=== PATIENT | female | born 1955 | race Caucasian/White ===

== ENCOUNTER 2017-12-03 07:04 | Inpatient (IN) | payer OTHER ==
[2017-11-22 10:54] LABS: APTT 34.8 Seconds (25.0-31.3); INR 1.1; PROTIME 10.7 Seconds (9.20-11.50)
[~2017-12-03] VITALS: Ht 160 cm; Wt 98.0 kg
[~2017-12-03 07:04] MED LIST: ASPIRIN325 PO; GABAPENTIN 100100 MG PO; HYZAAR 50-12.51 TAB PO; OXYCODONE HYDROC5 GM PO; PHENERGAN 25 MG25 M1 PO; PROAIR HFA8.5 GM INH; SYMBICORT160 MCG/4. INH; VITAMIN D1000 UNI1 PO
[2017-12-03 10:30] VITALS: BP 136/87
[2017-12-03 16:37] VITALS: BP 130/65
[2017-12-03 20:00] VITALS: BP 120/62
[2017-12-04 00:14] VITALS: BP 118/68
[2017-12-04 04:37] VITALS: BP 126/72
[2017-12-04 05:15] LABS: HEMOGLOBIN 10.8 gm/dL (12.0-15.0)
[2017-12-04 12:00] VITALS: BP 128/63
[2017-12-04 16:00] VITALS: BP 160/82
[2017-12-05] VITALS: BP 130/57
[2017-12-05 04:08] VITALS: BP 137/74
[2017-12-05 05:18] LABS: HEMATOCRIT 33.3 % (37.0-47.0); HEMOGLOBIN 10.7 gm/dL (12.0-15.0)
[2017-12-05 09:20] VITALS: BP 137/74
[2017-12-05] MEDS ORDERED: ELIQUIS2.5 MG PO (10:25)
[2017-12-05] MEDS ORDERED: OXYCODONE HCL 55 MG PO (10:26)
[2017-12-05 10:27] VITALS: BP 137/74
--- NOTE | 2018-01-02 06:50 | OP ---
[address] [address] OPERATIVE REPORT Name: DHARA ESPOSITO Room: [address]#: [id number] Admission: 12/03/17 Attend Phys: Shabnam Gillis Discharge: 12/05/17 Date of : 59 Report #: [id number] THIS REPORT FOR: //name// CC: Eb Lieberman DICTATED BY: Richard Rizzo DO DATE OF SERVICE: 12/03/2017 PREOPERATIVE DIAGNOSIS: Left knee degenerative joint disease. POSTOPERATIVE DIAGNOSES: Left knee degenerative joint disease. PROCEDURE: Left total knee arthroplasty utilizing [employer]omet Vanguard total knee system with the following components: 1. A size 62.5-mm left cruciate retained femur. 2. A 67-mm fixed cruciate tibial plate. 3. A 10-mm E1 infused polyethylene spacer. 4. A 28-mm asymmetric patella. SURGEON: Rinku Birmingham DO. CERTIFIED SUBSTANCE ABUSE COUNSELOR: 1. Richard Rizzo DO. 2. Lv Vizcarra DO. ESTIMATED BLOOD LOSS: 150 mL. ANESTHESIA: General. TOURNIQUET TIME: 42 minutes at 295 mmHg to the left lower extremity. ANTIBIOTICS: 2 grams Ancef IV preoperatively. COMPLICATIONS: None. DRAINS: None. SPECIMENS: None. DISPOSITION: Stable to PACU and will be admitted to the hospital for standard postoperative care. INDICATION FOR PROCEDURE: The patient is a pleasant 62-year-old female who was [facility] [address] [place] [address] OPERATIVE REPORT Name: DHARA ESPOSITO Room: [address] IN [facility].#: [id number] Admission: 12/03/17 Attend Phys: Shabnam Gillis Discharge: 12/05/17 Date of : 59 Report #: [id number] seen in Orthopedic Clinic with complaints of chronic left knee pain. On radiograph, she has evidence of advanced DJD, more so in the medial compartment than the lateral. Her pain has been refractory to conservative measures consisting of oral anti-inflammatories, activity modifications, home physical therapy exercises, attempted weight loss and occasional intra-articular corticosteroid injections for much greater than 6 months' duration. Pain is impacting her quality of life preventing him from performing activities that she wishes to. Therefore, recommend proceeding with a left total knee arthroplasty. Risks, benefits, complications, indications, and alternative treatments were discussed and the patient wished to proceed with surgery today. DESCRIPTION OF PROCEDURE: The patient was seen in preoperative holding area. Correct operative site, left knee was initialed. The patient was taken back to the operating suite, placed in supine position on the operating table, given benefit of general anesthetic. A well-padded tourniquet was placed in left upper thigh. Left lower extremity was then prepped and draped in typical fashion. Surgery began with a timeout, identifying correct patient, correct procedure, correct performing surgeon and preoperative antibiotics. Next, standard anterior midline knee incision was made using a 10 blade scalpel. Skin was incised and subcutaneous tissues were sharply incised until prepatellar fascia was encountered. Next, standard medial parapatellar arthrotomy was performed with a new 10 blade scalpel followed by subperiosteal release of the proximal medial tibia sleeve and to a lesser extent the proximal lateral tibia. Next, patella was everted, knee was flexed and intramedullary femoral drill was inserted into the distal femur, followed by the intramedullary cutting guide placed at 5 degrees left with 11 mm cut. The cutting block was pinned into place. Distal femur cut was performed using oscillating saw. Next, attention was turned to the proximal tibia cut using extramedullary tibial guide aligned along the medial third of the tibial tubercle, the tibial crest and the center of the talus as well as the second metatarsal. A 10-mm resection was taken off the high lateral side. A cutting block was pinned into place. A cutting block was then elected to be shifted up 2 mm taken and 8 mm cut. Again, this was pinned into place. The proximal tibia cut was performed protecting all ligamentous structures throughout the cut. All bony debris were removed. Menisci were then excised at this time using electrocautery. A 10 spacer block was placed in the knee in extension at full extension and it was rather well balanced to varus and valgus stress. Next, attention was turned back to the femur. AP sizer was inserted in place and the 3 degrees rotation measured to be a 62.5-mm femoral component. This was then drilled and a 4-in-1 cutting block was impacted into place in the distal femur. Next, and anterior posterior and anterior posterior chamfer cuts were performed using oscillating saw. All bony debris was removed. Next, attention was turned back to the tibia. The trial tibia was sized and pinned into place appropriately followed by the trial femoral component. A 10-mm polyethylene spacer was [place] [address] OPERATIVE REPORT Name: DHARA ESPOSITO Room: [address]#: [id number] Admission: 12/03/17 Attend Phys: Jc EthanShabanm Luna Discharge: 12/05/17 Date of : 59 Report #: [id number] Knee was taken through range of motion at full flexion and full extension, was stable to varus and valgus stress and was stable at 90 degrees with anterior and posterior drawer testing. Next, attention was turned to the patella, was denervated circumferentially using the electrocautery. Using the Tammy reamer, it was reamed in the normal fashion. It was measured to a size 28, which was drilled appropriately and a trial patellar button was inserted. Knee was again taken through range of motion and felt to be tracking appropriately. Next, a cruciate retained femur drill holes were performed. A trial femoral component was removed. The tibia was drilled and cruciate punched at this time. All trial components were removed and bony surfaces were thoroughly irrigated using pulsatile lavage. Next, cement was applied to the proximal tibia and a final tibial component was impacted into place. All excess cement was removed. In similar fashion, a femoral component was impacted into place. All excess cement was removed. A size 12 trial polyethylene spacer was inserted. A final patella button was then cemented into place and held with patellar clamp. I felt that we had better range of motion, more so terminal extension with our 10-mm polyethylene spacer. Therefore, we pulled our final 10-mm polyethylene spacer, which was inserted with the knee flexed and a locking bar was then positioned in place. At this time, patella was then flipped into its [place] position and the knee was held at 90 degrees of flexion. A standard cocktail was injected and knee was thoroughly irrigated. Capsule was closed first with a few #1 Vicryl sutures in a [id number] fashion followed by a running Quill suture. Subcutaneous tissues were closed in a simple inverted fashion with 2-0 Monocryl suture followed by running subcuticular 3-0 Stratafix suture and skin glue. Standard dressings were applied consisting of Mepilex, 4 x 4s, soft roll and a 6-inch Trung bandage. The patient was weaned from general anesthetic, transferred in stable condition to the PACU. All sponge, needle counts were correct x 2. <ELECTRONICALLY SIGNED> By: Yogi Geller DO 01/02/18 [id number] [id number] 1005Robalberto Birmingham DO /fly
== END 2017-12-05 16:00 | disposition home health service (06) | DRG 470 ==
LOC: M.PRE 07:04 → M.TBA 10:40 → M.ORTHSURG 10:40 → M.PRE 10:48 → M.ORTHSURG 14:03 → M.PRE 14:45 → M.ORTHSURG 12-05 16:00
PROVIDERS: Orthopaedic Surgery; ADMIT Internal Medicine
PROC: 0SRD0J9 Replacement of Left Knee Joint with Synthetic Substitute, Cemented, Open Approach (ICD-10-PCS; principal; 2017-12-03)
DX: M17.12 Unilateral primary osteoarthritis, left knee (principal); D62 Acute posthemorrhagic anemia; I10 Essential (primary) hypertension; J45.909 Unspecified asthma, uncomplicated; Z96.651 Presence of right artificial knee joint; Z79.899 Other long term (current) drug therapy; Z88.2 Allergy status to sulfonamides